=== PATIENT | male | born 1945 | race Caucasian/White ===

== ENCOUNTER 2016-06-09 08:25 | Day surgery (SDC) | payer SELFPAY ==
[~2016-06-09 08:25] MED LIST: ACTOS30 MG PO; ACTOS45 M1 PO; AMBIEN10 M1 PO; AMBIEN5 M1 PO; AMOXICILLIN500 M1 PO; APRESOLINE50 MG PO; AVODART0.5 M1 PO; BACTRIM DS TAB1 EAC2 PO; BYSTOLIC10 M1 PO; BYSTOLIC20 M1 PO; BYSTOLIC20 MG PO; BYSTOLIC5 M1 PO; CLINDAMYCIN HC300 M2 PO; COLACE100 M1 PO; COLCRYS0.6 M1; COUMADIN2.5 M1 PO; COUMADIN5 M2 PO; FENOFIBRATE PO; FLOMAX0.4 M1 PO; HYDROCHLOROTHIAZIDE PO; KEFLEX500 MG PO; KETOCONAZOLE15 GM TP; LANTUS100 UNITS/ SC; LASIX PO; LASIX20 M1 PO; LOFIBRA160 M1 PO; LOTREL 5/101 CAP PO; LOVENOX150 MG/1 M SC; MULTIVITAMIN1 TAB PO; NIACIN50 PO; NORCO 5/325 TAB1 TAB PO; NORVASC10 MG PO; NOVOLOG100 UNITS/ SC; OMEGA 31 CAP PO; OMNICEF300 MG PO; SENOKOT-S TABLE1 TAB PO; STOOL SOFTENER PO; TENORMIN100 MG PO; TRADJENTA5 M1 PO; TRAJENTA PO; TRESIBA FL100 UNIT/1; TRIAMCINOLONE A15 G2 TP; TRICOR PO; TRIGLIDE160 M1 PO; TRIGLIDE160 MG PO; TYLENOL EXTRA500 M1 PO; TYLENOL325 MG PO; ULORIC80 M1 PO; VIBRAMYCIN100 M1 PO; VITAMIN D-32000 UNI3 PO; VITAMIN D3 PO
[2016-06-09 09:21] LABS: INR 1.2 INR (0.9-1.1); PROTHROMBIN TIME 14.3 SECONDS (9.0-13.6)
== END 2016-06-09 13:57 ==
LOC: SHSB 08:25 → PACU 11:18 → CAR1 12:02
PROVIDERS: Anesthesiology
PROC: 0CDWXZ0 Extraction of Upper Tooth, Single, External Approach (ICD-10-PCS; principal; 2016-06-09)
DX: S02.5XXA Fracture of tooth (traumatic), initial encounter for closed fracture (principal); E11.22 Type 2 diabetes mellitus with diabetic chronic kidney disease; I12.9 Hypertensive chronic kidney disease with stage 1 through stage 4 chronic kidney disease, or unspecified chronic kidney disease; N18.9 Chronic kidney disease, unspecified; M19.90 Unspecified osteoarthritis, unspecified site; E78.5 Hyperlipidemia, unspecified; K44.9 Diaphragmatic hernia without obstruction or gangrene; M10.9 Gout, unspecified; E66.01 Morbid (severe) obesity due to excess calories; Z79.01 Long term (current) use of anticoagulants; Z79.899 Other long term (current) drug therapy; Z68.44 Body mass index [BMI] 60.0-69.9, adult; X58.XXXA Exposure to other specified factors, initial encounter; Z98.890 Other specified postprocedural states